=== PATIENT | female | born 1985 | race Caucasian/White ===

== ENCOUNTER 2020-10-21 19:38 | Emergency (ER) | payer OTHER, SELFPAY ==
[2020-10-21 20:12] VITALS: BP 111/53; PULSE 64; RESP 20; TEMP 36.4; O2SAT 100; BMI 19.2
--- NOTE | 2020-10-21 22:11 | ED.LOWEXIN ---
HPI - Extremity Injury (Lower) General Chief Complaint: Extremity Injury, Lower Stated Complaint: right side pain Time Seen by Provider: 10/21/20 22:11 History of Present Illness HPI Narrative: Patient 35-year-old female presents today with having right thigh pain after moving an object from the middle self to the lower shelf. Patient denies any bowel urinary incontinence. There is no back pain. Pain is localized to the thigh. There is worsening pain with movement. There is no leg swelling. Not on control. No history of blood clots. No chest pain or shortness breath no recent travel. Patient is from home. No cough no congestion or upper respiratory symptoms. No dizziness no nausea no vomiting. Related Data Previous Rx's Medication Instructions Recorded ibuprofen 400 mg PO Q6H PRN #20 tab 10/21/20 Allergies Allergy/AdvReac Type Severity Reaction Status Date / Time aspirin [ASA] Allergy Unknown PALPITATIONS, Verified 10/21/20 20:12 rash Review of Systems Review of Systems: Constitutional: No Weight loss, No Fever, No Chills, No Night Sweats, No Fatigue, No Malaise ENT/Mouth: No Hearing loss, No Ear Pain, No Nasal Congestion, No Sinus Pain, No Hoarseness, No sore throat, No Rhinorrhea, No Swallowing Difficulty Eyes: No Eye Pain, No Swelling, No Redness, No Foreign Body, No Discharge, No Vision Changes Cardiovascular: No Chest Pain, No SOB, No Dyspnea on Exertion, No Orthopnea, No Edema, No Palpitations Respiratory: No Cough, No Sputum, No Wheezing, No Smoke Exposure, No Dyspnea Gastrointestinal: No Nausea, No Vomiting, No Diarrhea, No Constipation, No abdominal Pain, No Hematochezia, No Melena Genitourinary: no irregular bleeding, No Dysuria, No Urinary Frequency, No Hematuria, No Urinary Incontinence, No Urgency, No Flank Pain, No Urinary Flow Changes, No Hesitancy Musculoskeletal: No joint pain, No Myalgias, No Joint Swelling, positive pain to the right thigh Skin: No Skin Lesions, No rash Neuro: No Weakness, No Numbness, No Paresthesias, No Loss of Consciousness, No Dizziness, No Headache Psych: No Anxiety/Panic, No Depression, No SI/HI/AH/VH, No Social Issues, Heme/Lymph: No Bruising, No Bleeding,No Lymphadenopathy Endocrine: No Polyuria, No Polydipsia, No Temperature Intolerance PMFSH Past Medical History Attestation statement: The following information was validated with the patient. Family History Family History Paternal Grandfather CVD (cardiovascular disease) HTN (hypertension) Social History Social History Advance Directives: No Patient : No Physical Exam Vital Signs: Vital Signs: Last Vital Signs Temp 97.5 F 10/21/20 20:12 Pulse 64 10/21/20 20:12 Resp 20 10/21/20 20:12 BP 111/53 L 10/21/20 20:12 Pulse Ox 100 10/21/20 20:12 Body Mass Index 19.2 Appearance: Alert. Oriented X3. No acute distress. Eyes: Pupils equal, round and reactive to light. ENT: Pharynx normal. Neck: Normal inspection. Neck supple. No lymph nodes noted. No crepitus CVS: Normal heart rate and rhythm. Pulses normal. Normal S1 and S2 Respiratory: No respiratory distress. Breath sounds normal. No Wheezing. No rales Abdomen: Soft and nontender. No rigidity. No distention. good BS x4 Skin: Skin warm and dry. Normal skin color. Normal skin turgor. Extremities: No lower extremity edema. Neurovascular intact to all extremities. No Lacerations. No Rash. There is no swelling at 10 cm below the tibial tuberosity. The calf size are equal bilaterally. Sensation over the lower extremity intact. Pulse intact. Patient ambulatory with normal gait. Neuro: Oriented X 3. No motor deficit. No sensory deficit. Moving all extermities. No slurred speech MDM - Extremity Injury (Lower) MDM Narrative Medical decision making narrative: Question musculo sprain. Will have patient take some Motrin. Close follow-up outpatient basis. No evidence for PE no evidence for fracture there is no trauma. Will discharge patient home. Discharge Plan Discharge Clinical Impression: Sprain Patient Disposition: Home, Self-Care Instructions: Hip Sprain (ED) Prescriptions: New ibuprofen 400 mg tablet 400 mg PO Q6H PRN (Reason: pain) Qty: 20 RF: 0 Print Language: Palestinian
== END 2020-10-21 22:34 | disposition home or self-care (01) ==
PROVIDERS: Emergency Provider Emergency Medicine Emergency Medical Services
DX: S73.101A Unspecified sprain of right hip, initial encounter (principal); X50.1XXA Overexertion from prolonged static or awkward postures, initial encounter; Y93.E9 Activity, other interior property and clothing maintenance; Y92.019 Unspecified place in single-family (private) house as the place of occurrence of the external cause; Y99.9 Unspecified external cause status
CPT/HCPCS: 99283; 99284

== ENCOUNTER 2021-01-05 10:07 | Emergency (ER) | payer OTHER, SELFPAY ==
[2021-01-05 10:39] VITALS: BP 114/49; PULSE 78; RESP 18; TEMP 36.5; O2SAT 100; BMI 20.7
--- NOTE | 2021-01-05 10:55 | ED_ITS ---
HPI - General Adult General Chief complaint: General Medical Stated complaint: body ache, diarrhea Time Seen by Provider: 01/05/21 10:22 Source: patient Mode of arrival: ambulatory Limitations: no limitations History of Present Illness HPI narrative: Patient presents to the ED for body aches since Friday and then this morning having 2 episodes of diarrhea. Patient denies any abdominal pain, chest pain, shortness of breath, coughing up blood, dizziness, headache, rash, or neck stiffness. Patient states he is vaccinated against COVID virus. Related Data Previous Rx's Medication Instructions Recorded ibuprofen 400 mg tablet 400 mg PO Q6H PRN #20 tab 10/21/20 Allergies Allergy/AdvReac Type Severity Reaction Status Date / Time aspirin [ASA] Allergy Unknown PALPITATIONS, Verified 10/21/20 20:12 rash Review of Systems Review of Systems: Yes all other systems are reviewed and are negative Constitutional: Constitutional: Reports as per HPI, Reports no additional constitutional complaints and Reports body ache(s) Eyes: Eyes: Reports as per HPI and Reports no additional eye complaints ENT: Reports system reviewed and no additional complaints, except as documented and Reports as per HPI Cardiovascular: Cardiovascular: Reports as per HPI and Reports no additional cardiovascular complaints Respiratory: Respiratory: Reports as per HPI and Reports no additional respiratory complaints Gastrointestinal: Gastrointestinal: Reports as per HPI, Reports no additional gastrointestinal complaints, Denies abdominal pain, Denies GI cramping, Denies early satiety, Denies dyspepsia, Denies heartburn, Denies fecal incontinence, Reports diarrhea (two episodes), Denies loose stools and Denies nausea Genitourinary: Genitourinary: Reports no additional female genitourinary complaints and Reports as per HPI Musculoskeletal: Musculoskeletal: Reports no additional musculoskeletal complaints and Reports as per HPI Neurologic: Reports system reviewed and no additional complaints, except as documented and Reports as per HPI Psychiatric: Psychiatric: Reports no additional psychiatric complaints and Reports as per HPI PMF Past Medical History Medical History (Updated 01/05/21 @ 12:49 by DUSTIN Ott) No known health problems Family History Family History Paternal Grandfather CVD (cardiovascular disease) HTN (hypertension) Social History Social History Advance Directives: No Advance Directives Information Provided: No Patient : No Physical Exam Vital Signs: Vital Signs: Last Vital Signs Temp 97.7 F 01/05/21 10:39 Pulse 78 01/05/21 10:39 Resp 18 01/05/21 10:39 BP 114/49 L 01/05/21 10:39 Pulse Ox 100 01/05/21 10:39 Body Mass Index 20.7 Const: General: cooperative, healthy appearing, comfortable, no acute distress, well developed, alert, awake and Physically active Orientation/consciousness: patient oriented x3 HENMT: Head: Yes normal to inspection, Yes No palpable skull fracture present, Yes normocephalic, Yes atraumatic and No abrasion Ears: hearing grossly normal bilaterally and external ears normal Eyes: General: appearance normal, both eyes and all related structures Neck: Neck: Yes normal visual inspection, Yes full ROM, Yes no lympha denopathy, Yes no meningeal signs, Yes trachea midline, Yes supple and No tender Chest: Chest palpation & inspection: normal inspection of the chest and normal palpation of entire chest wall Resp: Effort & Inspection: normal respiratory effort and able to speak in complete sentences Auscultation: clear to auscultation bilaterally Cardio: Jugular venous distension: no JVD Heart sounds: S1 normal heart sound present and S2 normal heart sound present GI: Inspection: Yes normal to inspection and No abdominal wall ecchymosis Palpation (GI): Soft to palpation, not firm, nontender, no guarding and not rigid : General: No CVA tenderness and Yes no CVA tenderness Back/Spine/Pelvis: Back: no CVA tenderness, No CVA tenderness and No back tenderness Skin: General skin exam: no rashes or lesions noted, abnormal elasticity and no erythema Neuro: General: patient oriented x3, gait normal, no meningeal signs and CN's II-XI intact bilaterally Cranial nerves: Yes CN's II-XII intact bilaterally Extrem: General: Yes normal to inspection and Yes full ROM Psych: Appearance: grossly normal, well kempt and not disheveled Course Course Course Narrative: Gastroenteritis viral syndrome. Reevaluation(s) Reevaluation #1: COVID swab, influenza, flu came back negative. Strep test negative. Patient vital signs are stable. No labs indicated. Patient not having any abdominal pain or active diarrhea. Patient main complaint is just body aches. Patient will be discharged and told to drink oral fluids and recommend brat diet. Time: 12:43 Medical Decision Making MDM Narrative Medical decision making narrative: Viral syndrome. Gastroenteritis Lab Data Labs: Lab Results 01/05/21 01/05/21 Range/Units 10:56 10:56 Coronavirus (PCR) NEGATIVE (Negative) Influenza Type A (PCR) NEGATIVE (Negative) Influenza Type B (PCR) NEGATIVE (Negative) RSV RNA Qual (PCR) NEGATIVE (Negative) S. pyogenes GrpA ELSA Negative (Negative) Discharge Plan Discharge Clinical Impression: Acute viral syndrome, Gastroenteritis Patient Disposition: Home, Self-Care Instructions: Gastroenteritis (ED), Viral Syndrome (ED) Additional Instructions: El examen f?sico de la historia indica shahla gastroenteritis viral. Regres? negativo para COVID y estreptococos. Recomendar hidrataci?n oral y dieta (BRAT). Esta dieta consiste en pl?scarlet, arroz, pur? de manzana y tostadas. Regrese al servicio de urgencias de inmediato si tiene dolor abdominal, n?useas, v?mitos, fiebre, escalofr?os, kimberli en las heces, dolor en el pecho, dificultad para respirar, debilidad o cualquier otro s?ntoma que le preocupe. Genie un seguimiento con bergeron proveedor de atenci?n primaria. Prescriptions: No Action ibuprofen 400 mg tablet 400 mg PO Q6H PRN (Reason: pain) Qty: 20 RF: 0 Stand Alone Forms: Work/School Release Interventions: ED Discharge Assessment Last Done: 01/05/21 12:58 Discharge Date/Time: 01/05/21 13:02
[2021-01-05 11:14] LABS: Strep A Nucleic Acid Negative (Negative)
[2021-01-05 12:05] LABS: Influenza A PCR NEGATIVE (Negative); Influenza B PCR NEGATIVE (Negative); Resp Syncy Virus RNA Qual PCR NEGATIVE (Negative); SARS COV2 PCR INHOUSE NEGATIVE (Negative)
== END 2021-01-05 13:02 | disposition home or self-care (01) ==
PROVIDERS: Physician Assistant; Emergency Provider Emergency Medicine
DX: B34.9 Viral infection, unspecified (principal); K52.9 Noninfective gastroenteritis and colitis, unspecified; Z20.822 Contact with and (suspected) exposure to COVID-19; M79.10 Myalgia, unspecified site
CPT/HCPCS: 0241U; 36415; 87651; 99283

== ENCOUNTER 2023-11-24 16:00 | Outpatient (AMB) | payer OTHER, SELFPAY ==
[2023-11-24 16:04] VITALS: BP 102/56; PULSE 75; TEMP 36.6; O2SAT 97; BMI 19.2
--- NOTE | 2023-11-24 16:04 | AM.OFFWIN_ITS ---
Intake Vital Signs 11/24/23 16:04 Height 5 ft 2 in Weight 105 lb BMI 19.2 BP 102/56 L Blood Pressure Location Rt brachial Position Sitting Pulse 75 Pulse Source Pulse Oximeter Temp 97.8 F Temp Source Oral Pulse Oximetry (%) 97 Oxygen Delivery Method Room Air Intake Visit Reasons: EP stomach pain diarhea headache Intake Note: Pt is here today for stomach pain and diarrhea for 4 days. Pt mentions both legs go numb and mouth tingling. Patient Tobacco Use Status: Never used Tobacco Allergies aspirin [ASA] Allergy (Unknown, Verified 11/24/23 16:08) PALPITATIONS, rash Do you need a note to return to daycare/school/sports/work: No HPI HPI Comments History of Present Illness Details Patient is a 38-year-old female complaining of 4 days of abdominal pain, diarrhea, mouth tingling and leg numbness. she states her diarrhea is watery, she denies any bloody or black stools. She denies any fevers. She denies any sick contacts. She does state she had a shell fish dinner prior to this happening but she denies any feelings of her throat closing up or tingling or a tickle in the back of her throat. She states it is there she eats or drinks something, she has immediate diarrhea. [facility] Medical History (Updated 11/24/23 @ 16:23 by Sophie Fernandez PA-C) No known health problems Family History Paternal Grandfather CVD (cardiovascular disease) HTN (hypertension) Social History Patient Tobacco Use Status: Never used Tobacco Review of Systems Const All systems reviewed & are unremarkable except as noted in HPI and below Physical Exam Vital Signs: Last Vital Signs Temp 97.8 F 11/24/23 16:04 Pulse 75 11/24/23 16:04 BP 102/56 L 11/24/23 16:04 Pulse Ox 97 11/24/23 16:04 Oxygen Delivery Method Room Air 11/24/23 16:04 BMI result Body Mass Index 19.2 Const General: cooperative, healthy appearing, comfortable, no acute distress and well developed Orientation/consciousness: patient oriented x3 Limitations: no limitations HEENT Head: Yes normal to inspection Eyes General: appearance normal, both eyes and all related structures Neck Neck: Yes normal visual inspection and Yes full ROM Resp Effort & Inspection: normal respiratory effort and able to speak in complete sentences Auscultation: clear to auscultation bilaterally Cardio Rate: regular rate Rhythm: regular rhythm Heart sounds: normal S1 and S2 GI Inspection: Yes normal to inspection Palpation (GI): Soft to palpation and nontender Skin General skin exam: no rashes or lesions noted Neuro General: patient oriented x3 Extrem General: Yes normal to inspection Assessment & Plan Assessment & Plan (1) Dehydration, mild: Code(s): E86.0 - Dehydration Plan: Transmission Calibration Engineer used for this visit, BP bit low, likely hypovolemic, recommended patient go to the emergency department for thorough workup and IV fluids. (2) Diarrhea: Code(s): R19.7 - Diarrhea, unspecified Qualifiers: Diarrhea type: unspecified type Qualified Code(s): R19.7 - Diarrhea, unspecified Plan: see above Plan see above Medications: Discontinued ibuprofen Discontinued Reason: Patient no longer taking 400 mg PO Q6H PRN 20 tabs 0RF pain Coding Level of Care Code New Pt Level 5 (63753) Diagnoses Dehydration, mild E86.0 Diarrhea, unspecified type R19.7 Diarrhea type: unspecified type
== END 2023-11-24 16:49 | disposition home or self-care (01) ==
PROVIDERS: Visit Provider Physician Assistant
DX: E86.0 Dehydration (principal); R19.7 Diarrhea, unspecified
CPT/HCPCS: 99205

== ENCOUNTER 2023-11-24 16:43 | Emergency (ER) | payer OTHER, SELFPAY ==
[2023-11-24 17:06] VITALS: BP 104/37; PULSE 69; RESP 16; TEMP 37.2; O2SAT 100; BMI 19.1
--- NOTE | 2023-11-24 17:08 | ED.GENADULT ---
HPI - General Adult General Chief complaint: Abdominal Pain Stated complaint: diarrhea, mouth numbness, r body numbness Time Seen by Provider: 11/24/23 18:39 Source: patient Mode of arrival: ambulatory Limitations: no limitations History of Present Illness ED Provider: Dr. Hernandez HPI narrative: 38-year-old female presents emergency room complaining of diarrhea for the past 4 days everything she she moves last year the bathroom and has some associated abdominal pain 2 days ago patient had some mouth and tongue numbness as well as the right arm which has since resolved she has tried to take Imodium but has not helped she denies any falls or injuries chest pain . Patient recent antibiotics denies eating uncooked food for check-in and denies any recent drinking from streams or travel. Related Data Previous Rx's ?Medication ?Instructions ?Recorded amoxicillin 875 mg-potassium 1 tab PO BID Infection #20 tabs 11/24/23 clavulanate 125 mg tablet Allergies Allergy/AdvReac Type Severity Reaction Status Date / Time aspirin [ASA] Allergy Unknown PALPITATIONS, Verified 11/24/23 17:10 rash Review of Systems Review of Systems: Review of systems: General: Patient denies any fever chills recent illness or falls Musculoskeletal: Denies back pain or body aches or other injuries HEENT: denies headache, runny nose, ear pain Respiratory: denies shortness of breath, cough Cardiovascular: no chest pain or palpitations : denies dysuria, frequency Abdomen: no nausea vomiting denies abdominal pain Extremities: no swelling, no pain Skin: no diaphoresis Yes all other systems are reviewed and are negative [facility] Past Medical History Medical History (Updated 11/24/23 @ 19:28 by Nixon Hernandez DO) No known health problems Family History Family History Paternal Grandfather CVD (cardiovascular disease) HTN (hypertension) Social History Social History Patient Tobacco Use Status: Never used Tobacco Advance Directives: No Advance Directives Information Provided: No Do you have a plan to hurt others: No Plan Physical Exam ED Vital Signs: Vital Signs - 24 hr 11/24/23 17:06 Temperature 98.9 F Pulse Rate 69 Respiratory Rate 16 Blood Pressure 104/37 L Pulse Oximetry 100 Oxygen Delivery Method Room Air BMI result Body Mass Index 19.1 General: Well-appearing well-nourished in no signs of distress HEENT: Normocephalic atraumatic Neck: No signs of JVD, no masses no tenderness or lymphadenopathy Cardiovascular: Regular rate and rhythm Respiratory: Clear to auscultation bilaterally Abdomen: Soft nontender no masses Extremities: Normal pedal pulses no signs of edema Skin: Dry warm no rashes Back: No tenderness full ROM Course Course Course Narrative: RME performed by Ingrid Mane PA-C. Patient is a 38 year old assigned female at presenting to the emergency department with nausea and diarrhea. Patient states over the last few days she has had diarrhea. Detailed physical exam and review of systems are deferred to the electric relay tester. Labs and swabs ordered. Patient placed back in the waiting room pending room availability and results. Medications Administered Generic Name Dose Route Start Last Admin Trade Name Freq PRN Reason Stop Dose Admin Sodium Chloride 1,000 mls @ 999 mls/hr 11/24/23 19:00 11/24/23 18:58 Ns IV 11/24/23 20:00 999 mls/hr .Q1H1M MADI Administration Discontinued Medications Generic Name Dose Route Start Last Admin Trade Name Freq PRN Reason Stop Dose Admin Ondansetron HCl 4 mg 11/24/23 18:48 11/24/23 18:58 Ondansetron Hcl 4 Mg/2 Ml Vial IVPUSH 11/24/23 18:49 4 mg ONCE ONE Administration Medical Decision Making Medical Decision Making [facility] Narrative: I will give patient fluids Zofran and check labs. 1926 labs are normal patient looks well belly exam is benign Shana is any need for any further imaging the patient Augmentin possible colitis the patient follow-up Differential Diagnosis Differential Diagnoses: The differential diagnosis associated with the presentation includes Diarrhea electrolyte abnormality viral illness weakness Lab Data 11/24/23 17:16 11/24/23 17:16 Labs: Lab Results 11/24/23 Range/Units 17:16 WBC 4.6 L (4.8-10.8) X10*3/uL RBC 4.41 (4.20-5.50) X10*6/uL Hgb 13.2 (12.0-16.0) g/dl Hct 38.7 (37.0-47.0) % MCV 87.8 (80.0-98.0) fL MCH 29.9 (27.0-33.0) pg MCHC 34.1 (31.0-35.0) g/dl RDW 12.2 (11.0-16.0) % Plt Count 239 (160-400) X10*3/uL MPV 10.8 (9.4-12.3) fL Immature Gran % (Auto) 0.2 (0.0-0.4) % Neut % (Auto) 64.3 (45-73) % Lymph % (Auto) 28.2 (20-40) % [place] % (Auto) 6.3 (2-11) % Eos % (Auto) 0.4 (0-4) % Baso % (Auto) 0.6 (0-2) % Lymph # (Auto) 1.3 (1.2-4.9) X10*3/uL [place] # (Auto) 0.3 (0.1-1.2) X10*3/uL Eos # (Auto) 0.0 (0.0-0.4) X10*3/uL Baso # (Auto) 0.0 (0.0-0.2) X10*3/uL Abs Immat Gran (auto) 0.01 (0.00-0.03) X10*3/uL Absolute Neuts (auto) 3.0 (2.0-8.3) x10*3/uL Absolute Nucleated RBC 0.000 (0.0-0.012) X10*3/uL Nucleated RBC % (auto) 0.0 (0.0-0.2) /100WBC Sodium 139 (135-145) mmol/L Potassium 3.8 (3.3-5.1) mmol/L Chloride 107 (96-108) mmol/L Carbon Dioxide 23 (22-29) mmol/L Anion Gap 13 (12-20) BUN 9 (9-16) mg/dL Creatinine 0.87 (0.5-1.4) mg/dL Estim Creat Clear Calc 66.2 Estimated GFR > 60 Random Glucose 86 (60-115) mg/dL Calcium 9.8 (8.4-10.2) mg/dL Magnesium 2.1 (1.6-2.6) mg/dL Total Bilirubin 0.7 (0.0-1.0) mg/dL AST 26 (5-31) U/L ALT 33 H (0-31) U/L Alkaline Phosphatase 55 (39-117) U/L Total Protein 7.6 (6.5-8.0) g/dL Albumin 4.2 (3.5-5.0) g/dL Influenza Type A (PCR) NEGATIVE (Negative) Influenza Type B (PCR) NEGATIVE (Negative) RSV RNA Qual (PCR) NEGATIVE (Negative) SARS-CoV-2 RNA (RT-PCR) NEGATIVE (Negative) Discharge Plan Discharge Clinical Impression: Dehydration, mild, Diarrhea, Colitis Patient Disposition: Home, Self-Care Instructions: Acute Diarrhea (ED), Colitis (ED) Additional Instructions: You were seen today for diarrhea. You had labs done which were all unremarkable. You were sent home on Augmentin to help you with the diarrhea if you have any other concerns please return to emergency department Prescriptions: New amoxicillin-pot clavulanate 875-125 mg tablet 1 tab PO BID Qty: 20 0RF Print Language: Azerbaijani
[2023-11-24 17:20] LABS: MANUAL DIFF FLAG NO
[2023-11-24 17:21] LABS: Basophils Percent Auto 0.6 % (0-2); Eosinophils Percent Auto 0.4 % (0-4); Hematocrit 38.7 % (37.0-47.0); Hemoglobin 13.2 g/dl (12.0-16.0); Imm Gran Abs Auto 0.01 X10*3/uL (0.00-0.03); Imm Gran Pct Auto 0.2 % (0.0-0.4); Lymphocytes Absolute Auto 1.3 X10*3/uL (1.2-4.9); Lymphocytes Percent Auto 28.2 % (20-40); Mean Corpuscular HGB Conc 34.1 g/dl (31.0-35.0); Mean Corpuscular Hemoglobin 29.9 pg (27.0-33.0); Mean Corpuscular Volume 87.8 fL (80.0-98.0); Mean Platelet Volume 10.8 fL (9.4-12.3); Monocytes Absolute Auto 0.3 X10*3/uL (0.1-1.2); Monocytes Percent Auto 6.3 % (2-11); Neutrophils Percent Auto 64.3 % (45-73); Platelet Count 239 X10*3/uL (160-400); Red Blood Count 4.41 X10*6/uL (4.20-5.50); Red Cell Distribution Width 12.2 % (11.0-16.0); White Blood Count 4.6 X10*3/uL (4.8-10.8)
[2023-11-24 17:36] LABS: Alanine Aminotransferase 33 U/L (0-31); Albumin Level 4.2 g/dL (3.5-5.0); Alkaline Phosphatase 55 U/L (39-117); Anion Gap 13 (12-20); Aspartate Amino Transferase 26 U/L (5-31); Bilirubin Total 0.7 mg/dL (0.0-1.0); Blood Urea Nitrogen 9 mg/dL (9-16); Calcium 9.8 mg/dL (8.4-10.2); Carbon Dioxide 23 mmol/L (22-29); Chloride 107 mmol/L (96-108); Creatinine Clr Calc Pharmacy 66.2; Estimated Glomerular Filt Rate > 60; Glucose Random 86 mg/dL (60-115); Magnesium 2.1 mg/dL (1.6-2.6); Potassium 3.8 mmol/L (3.3-5.1); Sodium 139 mmol/L (135-145); Total Protein 7.6 g/dL (6.5-8.0)
[2023-11-24 18:01] LABS: Influenza A PCR NEGATIVE (Negative); Influenza B PCR NEGATIVE (Negative); Resp Syncy Virus RNA Qual PCR NEGATIVE (Negative); SARS COV2 PCR INHOUSE NEGATIVE (Negative)
[2023-11-24] MEDS: ondansetron HCL 4 MG/2 ML VIAL IVPUSH (18:58)
[2023-11-24] MEDS: 0.9 % Sodium Chloride 1,000 ML 999 ML IV (18:58)
[2023-11-24 19:31] VITALS: BP 103/76; PULSE 64; RESP 16; TEMP 36.6; O2SAT 100
[2023-11-24] MEDS: Amoxicillin/Potassium Clav 875 MG TABLET PO (20:03)
[2023-11-24 20:13] VITALS: BP 103/76; PULSE 64; RESP 16; TEMP 36.6; O2SAT 100
== END 2023-11-24 20:14 | disposition home or self-care (01) ==
PROVIDERS: Physician Assistant Medical; Emergency Provider Student in an Organized Health Care Education/Training Program
DX: E86.0 Dehydration (principal); K52.9 Noninfective gastroenteritis and colitis, unspecified; R11.0 Nausea; Z03.818 Encounter for observation for suspected exposure to other biological agents ruled out; Z79.899 Other long term (current) drug therapy
CPT/HCPCS: 0241U; 80053; 83735; 85025; 96361; 96374; 99284; J2405